=== PATIENT | female | born 1980 | race Caucasian/White ===

== ENCOUNTER 2021-06-15 17:22 | Emergency (ER) | payer OTHER, SELFPAY ==
--- NOTE | ~2021-06-15 | XR_ITS ---
EXAMINATION: XR wrist RT min 3V DATE: 06/15/2021 18:05 INDICATION: Right wrist pain after pulling injury. TECHNIQUE: Posteroanterior, ulnar deviation, oblique, and lateral views of the right wrist were obtai giacomo. COMPARISON: none FINDINGS: Alignment is normal. No fracture. Mild osteoarthritis at the triscaphe and first carpal metacarpal xochilt ints. Prominent subarticular cystic change at the distal pole of the scaphoid. Soft tissues are unrem arkable. IMPRESSION: 1. 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 No acute osseous abnormality. Reviewed, dictated and finalized at location A. OF [facility] IMPRESSION: 1. 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 No acute osseous abn ormality.
[2021-06-15 17:48] VITALS: BP 116/76; PULSE 74; RESP 16; TEMP 36.5; O2SAT 98
[2021-06-15 17:56] VITALS: BP 116/76; PULSE 74; RESP 16; TEMP 36.5; O2SAT 98
--- NOTE | 2021-06-15 18:16 | ED.UPPEXIN ---
HPI - Extremity Injury (Upper) General Chief Complaint: Extremity Injury, Upper Stated Complaint: Right Wrist Injury/Work Comp Time Seen by Provider: 06/15/21 18:05 Source: patient, RN notes reviewed and old records reviewed Mode of arrival: ambulatory Limitations: no limitations History of Present Illness HPI narrative: 40 year old female present tos express care with complaints of injury today at work when combative resident grabbed and jerked her right wrist area with continued sharp throbbing pain since incident occurred at 1630. Patient states pain to right wrist area especially when she attempts to move area with intermittent feeling of tingling or numbness at wrist area. Patient has strong right radial pulse with fingers warm to touch and mobile with brisk capillary refill to nail bed of right finger nails.Has not applied ice or taken any OTC pain relievers prior to arrival to clinic. MD complaint: injury to: right and wrist Onset (ago): hour(s) (at 1630 today) Related Data Home Medications Medication Instructions Recorded Confirmed loratadine [Claritin] 10 mg PO DAILY 06/15/21 06/15/21 meclizine 25 mg PO TID PRN 06/15/21 06/15/21 ondansetron HCl [Zofran] 4 mg PO Q6H PRN 06/15/21 06/15/21 oxycodone-acetaminophen [Percocet] 1 tablet PO Q6H PRN 06/15/21 06/15/21 Allergies Allergy/AdvReac Type Severity Reaction Status Date / Time codeine Allergy Intermediate Nausea and Verified 06/15/21 17:53 Vomiting ezetimibe Allergy Unknown HIVES/RED Verified 06/15/21 17:53 FACE morphine Allergy Unknown HIVES Verified 06/15/21 17:53 simvastatin Allergy Unknown HIVES/RED Verified 06/15/21 17:53 FACE terbutaline Allergy Unknown Nausea and Verified 06/15/21 17:53 Vomiting Review of Systems Review of Systems: CONSTITUTIONAL: Denies fever, chills, or sweats. EYES: Denies visual changes, redness, or discharge. ENT: Denies rhinorrhea, congestion, sore throat, or otalgia. CARDIOVASCULAR: Denies chest pain, palpitations, or edema. RESPIRATORY: Denies cough or dyspnea. GASTROINTESTINAL: Denies abdominal pain, nausea, vomiting, or diarrhea. GENITOURINARY: Denies dysuria or hematuria. SKIN: Denies rash or itching. MUSCULOSKELETAL:History of chronic back pain, right wrist joint pain from injury, or myalgia. NEUROLOGIC: Denies headache, numbness, or weakness. PSYCHIATRIC: Denies anxiety or depression. All systems reviewed & are unremarkable except as noted in HPI and below PMFSH Past Medical History Medical History (Updated 06/20/21 @ 13:14 by Chrissy Castillo NP) Angina pectoris Chronic back pain Fracture of left wrist IBS (irritable bowel syndrome) Myocardial infarction small artery disease Vertigo Surgical History Surgical History (Updated 06/20/21 @ 13:11 by Chrissy Castillo NP) History of hysterectomy History of tonsillectomy Hx of cholecystectomy Previous section x3 S/P right rotator cuff repair Family History Family History Other Family history of cardiovascular disease Family history of malignant neoplasm Hypertension Social History Social History (Updated 06/20/21 @ 13:13 by Chrissy Castillo NP) Smoking packs per day: 0.5 Smoking cigarettes per day: 10.0 Years smoked: 10 Smoking pack-years: 5.00 Smoking status: Current every day smoker Alcohol intake: never Substance use: current Substance use type: opiates Last use: chronic back pain Living arrangements: with family Gender identity (if verbalized by the patient): Female Comments At time of signature, agree with nursing past medical, surgical, social and family history. There is no relevant family history pertinent to the presenting complaint Exam Narrative: GENERAL: Well-appearing, well-nourished, and in no acute distress. HEAD: Normocephalic, atraumatic. EYES: PERRLA and EOMI. ENT: Nares clear, no rhinorrhea or epistaxis. Mucous membran
== END 2021-06-15 18:52 | disposition home or self-care (01) ==
PROVIDERS: Emergency Provider Registered Nurse
DX: S63.501A Unspecified sprain of right wrist, initial encounter (principal); S66.911A Strain of unspecified muscle, fascia and tendon at wrist and hand level, right hand, initial encounter; Y04.2XXA Assault by strike against or bumped into by another person, initial encounter; Y99.0 Civilian activity done for income or pay; F17.210 Nicotine dependence, cigarettes, uncomplicated; I25.2 Old myocardial infarction; I20.9 Angina pectoris, unspecified
CPT/HCPCS: 73110; 99203; G0463